=== PATIENT | female | born 1970 | race Caucasian/White ===

== ENCOUNTER → 2016-09-23 | Outpatient (CLI) | payer BC ==
[2016-02-22 22:02] VITALS: BP 126/65
[2016-09-23 17:34] LABS: C-REACTIVE PROTEIN 2.4 mg/L (0-3.0)
[2016-09-23 18:10] LABS: RHEUMATOID FACTOR NEGATIVE (NEGATIVE)
[2016-09-27 06:20] LABS: ANTI-NUCLEAR ANTIBODY TEST None Detected (None Detected)
== END ==
LOC: LAB 16:57
PROVIDERS: ATTEND Internal Medicine
DX: M79.1 Myalgia (principal); M62.89 Other specified disorders of muscle
CPT/HCPCS: 36415; 82550; 85652; 86140; 86308; 86430

== ENCOUNTER → 2016-11-22 | Outpatient (CLI) | payer BC ==
[2016-02-22 22:02] VITALS: BP 126/65
== END ==
LOC: LAB 08:50
PROVIDERS: ATTEND Nurse Practitioner Family
DX: E34.8 Other specified endocrine disorders (principal); R53.83 Other fatigue; M79.1 Myalgia
CPT/HCPCS: 36415; 82533

== ENCOUNTER → 2017-02-21 | Outpatient (CLI) | payer BC ==
[2016-02-22 22:02] VITALS: BP 126/65
--- NOTE | 2017-02-21 11:49 | RAD ---
Lumbar spine, five views Indication: Lower back pain with fall a few weeks ago Comparison: None Findings: Vertebral body heights and alignment are normal. No acute fracture or subluxation is ident ified. There is mild degenerative disc disease of the inferior thoracic spine and at L1-L2 and L5-S1 . Mild multilevel facet arthropathy, greatest caudally is also noted. SI joints are unremarkable. Impression: No acute osseous abnormality. Mild degenerative changes, as above. Reported By:
--- NOTE | 2017-02-21 11:59 | RAD ---
Cervical spine, five views Indication: Neck pain with history of fall few weeks ago Comparison: MRI February 13, 2016 Findings: The cervical spine is well seen to C6 on the lateral view. Visualized vertebral body heigh ts and alignment are normal. No acute fracture or subluxation is identified. There is minimal degene rative disc disease at C5-C6 and C6-C7 without significant disk space narrowing. Prevertebral soft t issues are unremarkable. Impression: Very mild degenerative disc disease of the lower cervical spine. Reported By:
== END | disposition home or self-care (01) ==
LOC: RAD 10:47
PROVIDERS: ATTEND Nurse Practitioner Family
DX: M54.5 Low back pain (principal); R20.0 Anesthesia of skin; R20.2 Paresthesia of skin; M50.322 Other cervical disc degeneration at C5-C6 level
CPT/HCPCS: 72050; 72110

== ENCOUNTER 2017-03-15 11:48 | Inpatient (IN) | payer BC ==
[2017-03-15] MEDS: NS 1000 ML 1,000 ML IV SCH (13:15)
[2017-03-15] MEDS: PROTONIX INJ 40 MG VIAL IVP SCH (13:16)
[2017-03-15] MEDS: CLEOCIN 600 MG IV PREMIX 600 MG/50 ML BAG IV SCH ×3 (13:16→20:59)
[2017-03-15] MEDS: ZOFRAN INJ 4 MG VIAL IVP PRN (13:16)
[2017-03-15] MEDS: MORPHINE SULFATE INJ 2 MG INJ IVP PRN ×2 (13:16→18:22)
[2017-03-15 13:22] LABS: BASOPHILS # (AUTO) 0.1 X10^3/uL (0.0-0.1); BASOPHILS % (AUTO) 1.2 % (0.2-1.0); EOSINOPHILS # (AUTO) 0.1 x10^3/uL (0.0-0.2); EOSINOPHILS % (AUTO) 0.6 % (0.9-2.9); HEMATOCRIT 37.7 % (36.0-47.0); HEMOGLOBIN 12.7 g/dL (12.0-16.0); LYMPHOCYTES # (AUTO) 2.3 X10^3/uL (1.3-2.9); LYMPHOCYTES % (AUTO) 25.3 % (21.0-51.0); MEAN CORPUSCULAR HEMOGLOBIN 29.1 pg (27.0-34.0); MEAN CORPUSCULAR HGB CONC 33.6 g/dL (33.0-35.0); MEAN CORPUSCULAR VOLUME 86.7 fL (80.0-100.0); MEAN PLATELET VOLUME 8.4 fL (7.4-11.0); MONOCYTES # (AUTO) 0.6 x10^3/uL (0.3-0.8); MONOCYTES % (AUTO) 7.2 % (0.0-13.0); NEUTROPHILS # (AUTO) 5.9 x10^3/uL (2.2-4.8); NEUTROPHILS % (AUTO) 65.7 % (42.0-75.0); PLATELET COUNT 325 X10^3/uL (150.0-450.0); RED BLOOD COUNT 4.35 X10^6/uL (3.5-5.4); RED CELL DISTRIBUTION WIDTH 14.1 % (11.6-16.5)
[2017-03-15 13:32] LABS: ALANINE AMINOTRANSFERASE 26 Units/L (12-78); ALBUMIN 3.1 g/dL (3.4-5.0); ALKALINE PHOSPHATASE 116 Units/L (46-116); ASPARTATE AMINO TRANSFERASE 16 Units/L (15-37); BLOOD UREA NITROGEN 9 mg/dL (7-18); CALCIUM 9.1 mg/dL (8.5-10.1); CARBON DIOXIDE 30.2 mmol/L (21-32); CHLORIDE 102 mmol/L (98-107); COR CA(FOR HYPOALB) 9.8 mg/dL (8.5-10.1); CREATININE 0.87 mg/dL (0.55-1.02); SODIUM 138 mmol/L (136-145); TOTAL PROTEIN 7.4 g/dL (6.4-8.2); eGFR BLACK RACES > 60 (>60); eGFR NON BLACK RACES > 60 (>60)
--- NOTE | 2017-03-15 13:33 | DR.H&P ---
H&P - History & Physical for Day of: H&P Date: 03/15/17 - Chief Complaint Chief Complaint: ABSCESS TO LEFT THIGH AND BACK - Allergies Allergies/Adverse Reactions: Allergies Allergy/AdvReac Type Severity Reaction Status Date / Time sulfamethoxazole Allergy Verified 03/15/17 12:45 [From Bactrim] trimethoprim [From Bactrim] Allergy Verified 03/15/17 12:45 - History of Present Illness History of Present Illness: 46 WF DIRECT ADMIT PER DR COREAS FOR TREATMENT OF CELLULITIS TO RIGHT THIGH WITH ABSCESS FORMATION, AND ABSCESS TO BACK. PT HAS TAKEN DOXYCYCLINE BY MOUTH AND WOUND ARE WITHOUT IMPROVEMENT. PLAN TO OBTAIN WOUND CULTURES, BC, ADMINISTER IV ATBX, CONSULT SURGEON FOR I & S PROCEDURE. IV PAIN CONTROL. RESUME HOME MEDICATION. - Past Medical History Past Medical History: Anxiety, Arthritis, Hypertension Additional Medical History: chronic UTIs - Past Surgical History Surgical History: Cholecystectomy, Hysterectomy - Social History Does patient currently use any type of tobacco product: No Have you used tobacco products in the last 12 months: No Type of Tobacco Use: None Does any household member use tobacco: No Alcohol Use: None Drug Use: None - Medications Home Medications: Citalopram 20 mg Tab [CELEXA 20 MG *] 1 tab PO DAILY 03/15/17 [History Confirmed 03/15/17] Estradiol [Estrace] 1 tab PO DAILY 03/15/17 [History Confirmed 03/15/17] Folic Acid [Folic Acid] 1 tab PO DAILY 03/15/17 [History Confirmed 03/15/17] - Review of Systems Constitutional: Fever, Chills Eyes: No Symptoms Reported ENT: No Symptoms Reported Respiratory: No Symptoms Reported Cardiovascular: No Symptoms Reported Gastrointestinal: Nausea Genitourinary: No Symptoms Reported Musculoskeletal: Leg Pain Skin: Wound Neurological: No Symptoms Reported - Physical Exam Vital Signs: Temperature 98.2 F Pulse Rate [Left Brachial] 85 Respiratory Rate 20 Blood Pressure [Left Arm] 127/68 Blood Pressure [Right Arm] 126/65 Blood Pressure 126/65 O2 Sat by Pulse Oximetry 97 Oriented: Normal Eyes: Normal Ear: Normal Nose: Normal Throat: Normal Respiratory: Clear Throughout Cardiovascular: Normal : Normal Auscultation: Bowel Sounds: Normal Palpation: Normal Tenderness: Normal Skin: Red, Tender, Wound (ABSCESS TO RIGHT THIGH, MID BACK) Musculoskeletal: Back:Thoracic, Tender (CERVICAL SPINE) Psychiatric: Anxiety Speech Pattern: Clear - Assessment/Plan (1) Abscess of leg, right Status: Acute Plan: ADMIT, BLOOD AND WOUND CULTURES. WOUND CARE, IV CLINDAMYCIN. SURGICAL CONSULT FOR I & D (2) Abscess or cellulitis of back Status: Acute (3) Cellulitis of leg, right Status: Acute
[2017-03-15 17:05] VITALS: BMI 37.0
[2017-03-15] MEDS: NORCO 10/325 TAB PO PRN (20:49)
[2017-03-16] MEDS: NS 1000 ML 1,000 ML IV SCH ×2 (01:59→16:48)
[2017-03-16] MEDS: CLEOCIN 600 MG IV PREMIX 600 MG/50 ML BAG IV SCH ×3 (05:11→21:16)
[2017-03-16] MEDS ORDERED: MARCAINE 0.25% INJ ONE ×2 (08:32→09:42)
[2017-03-16] MEDS ORDERED: XYLOCAINE 1% and EPINEPHRINE 1:100,000 ONE ×2 (08:32→09:42)
[2017-03-16] MEDS ORDERED: VERSED ONE (09:15)
[2017-03-16] MEDS ORDERED: DIPRIVAN VIAL ONE (09:15)
[2017-03-16 09:19] LABS: BASOPHILS # (AUTO) 0.1 X10^3/uL (0.0-0.1); BASOPHILS % (AUTO) 1.1 % (0.2-1.0); EOSINOPHILS # (AUTO) 0.1 x10^3/uL (0.0-0.2); EOSINOPHILS % (AUTO) 1.4 % (0.9-2.9); HEMATOCRIT 37.2 % (36.0-47.0); HEMOGLOBIN 12.4 g/dL (12.0-16.0); LYMPHOCYTES # (AUTO) 1.9 X10^3/uL (1.3-2.9); LYMPHOCYTES % (AUTO) 29.9 % (21.0-51.0); MEAN CORPUSCULAR HEMOGLOBIN 29.1 pg (27.0-34.0); MEAN CORPUSCULAR HGB CONC 33.4 g/dL (33.0-35.0); MEAN CORPUSCULAR VOLUME 87.1 fL (80.0-100.0); MEAN PLATELET VOLUME 8.2 fL (7.4-11.0); MONOCYTES # (AUTO) 0.5 x10^3/uL (0.3-0.8); NEUTROPHILS # (AUTO) 3.8 x10^3/uL (2.2-4.8); NEUTROPHILS % (AUTO) 59.6 % (42.0-75.0); PLATELET COUNT 245 X10^3/uL (150.0-450.0); RED BLOOD COUNT 4.27 X10^6/uL (3.5-5.4); WHITE BLOOD COUNT 6.4 X10^3/uL (3.6-10.0)
[2017-03-16] MEDS ORDERED: LR 1000 ML IV 1,000 ML IV ONE (09:22)
[2017-03-16 09:31] LABS: ALANINE AMINOTRANSFERASE 23 Units/L (12-78); ALBUMIN 2.9 g/dL (3.4-5.0); ALKALINE PHOSPHATASE 115 Units/L (46-116); ASPARTATE AMINO TRANSFERASE 16 Units/L (15-37); BLOOD UREA NITROGEN 9 mg/dL (7-18); CALCIUM 8.9 mg/dL (8.5-10.1); CARBON DIOXIDE 28.3 mmol/L (21-32); CHLORIDE 104 mmol/L (98-107); COR CA(FOR HYPOALB) 9.8 mg/dL (8.5-10.1); CREATININE 0.83 mg/dL (0.55-1.02); SODIUM 138 mmol/L (136-145); TOTAL PROTEIN 7.1 g/dL (6.4-8.2); eGFR BLACK RACES > 60 (>60); eGFR NON BLACK RACES > 60 (>60)
[2017-03-16] MEDS ORDERED: XYLOCAINE-MPF 1% ONE (09:41)
[2017-03-16] MEDS ORDERED: FENTANYL INJ 100 mcg ONE (09:44)
[2017-03-16] MEDS ORDERED: NORCO 5/325 MG TAB PO PRN (10:52)
[2017-03-16] MEDS: MORPHINE SULFATE INJ 2 MG INJ IVP PRN ×2 (11:02→17:34)
[2017-03-16] MEDS: PROTONIX INJ 40 MG VIAL IVP SCH (11:02)
--- NOTE | 2017-03-16 11:07 | OR.GENERIC ---
Post-Op Note Generic - Post-Op Note Operative Report: Date of Operation: March 16, 2017 Pre-Operative Diagnosis: 1. Left lower back abscess. 2. Right anterior thigh abscess. Post-Operative Diagnosis: 1. Left lower back abscess. 2. Right anterior thigh abscess. Procedures: 1. Incision and drainage of left lower back abscess. 2. Incision and drainage of right anterior thigh abscess. Surgeon: Faizan Gan MD Anesthesia: Monitored anesthesia care and local. Clinical Writer: Melvin Dillard CRNA. Specimen: Wound culture from left lower back. Estimated blood loss: Minimal. Complications: None. Summary: The patient is a 46 year old female who presented with a left lower back and right anterior thigh abscesses. The patient failed to improve with outpatient antibiotics and was admitted to the hospital for IV antibiotics. Surgery consulted for incision and drainage. The risk and benefits of the procedure including difficulty with anesthesia, bleeding, infection, scar formation, delayed healing, as well as recurrence were discussed with the patient. The patient understood these risks and requested the procedure. On March 16, 2017, the patient was brought to the operative theatre. A time out was performed verifying the patient and the procedure. After satisfactory induction of monitored anesthesia care, the left lower back was prepped and draped in the usual fashion. Local anesthetic was infiltrated around the area of induration. A small core of skin was removed sharply. The abscess cavity was entered bluntly. Purulent drainage was noted. A culture was obtained and sent to microbiology. All loculations were disrupted bluntly. The abscess cavity was copiously irrigated. The abscess cavity was noted to track approximately 6 cm inferior and lateral to the skin escar. Next, the wound was packed with Iodoform. A sterile dressing was placed. The patient was then positioned to address the right anterior thigh abscess. The area was prepped and draped. Local anesthetic was injected to create a field block. Spontaneous drainage occurred prior to arrival in the OR. Therefore, the area with the skin defect was enlarged sharply. The abscess cavity was explored and mild purulence seen. All loculations were disrupted bluntly. The wound was irrigated. The wound was then packed with Iodoform. A dressing was placed. The patient was awakened and taken to the recovery room in stable condition. There were no complications. All counts were correct.
[2017-03-16] MEDS: NORCO 10/325 TAB PO PRN ×2 (13:59→21:08)
--- NOTE | 2017-03-16 18:00 | PCM.PROG ---
Progress Note - Progress Note for Day of Date: 03/16/17 - Subjective Subjective: pain to abscess to right inner thigh, pt states abscess began to drain last night - Past Medical Family Social History Past Med/Fam/Surg Hx: No changes since H&P Allergies: Allergies sulfamethoxazole [From Bactrim] Allergy (Verified 03/15/17 12:45) trimethoprim [From Bactrim] Allergy (Verified 03/15/17 12:45) - Review of Systems ROS: No change since H&P - Vital Signs and I&O's Vital Signs: Temperature 97.8 F Pulse Rate [Right Brachial] 77 Pulse Rate [Left Brachial] 85 Respiratory Rate 18 Blood Pressure [Left Arm] 127/68 Blood Pressure [Right Arm] 107/56 Blood Pressure 126/65 O2 Sat by Pulse Oximetry 96 Intake and Output: Intake & Output 03/14/17 03/15/17 03/16/17 03/17/17 11:59 11:59 11:59 11:59 Intake Total 1500 240 Balance 1500 240 - Physical Exam Oriented: Normal Eyes: Normal Ear: Normal Nose: Normal Throat: Normal Respiratory: Normal Cardiovascular: Normal : Normal Auscultation: Bowel Sounds: Normal Tenderness: Normal Skin: Red, Tender, Wound (ABSCESS TO RIGHT THIGH, MID BACK) Musculoskeletal: Back:Thoracic, Tender (CERVICAL SPINE) Psychiatric: Anxiety Speech Pattern: Clear, Appropriate - Laboratory and Diagnostics Result Diagrams: 03/16/17 09:00 03/16/17 09:00 Labs: 03/15/17 13:56 Leg - Right Gram Stain - Final 03/15/17 13:56 Leg - Right Wound Culture - Preliminary 03/15/17 13:54 Back Gram Stain - Final 03/15/17 13:54 Back Wound Culture - Preliminary 03/15/17 13:07 Blood Blood Culture - Preliminary Laboratory WBC 6.4 X10^3/uL (3.6-10.0) 03/16/17 09:00 RBC 4.27 X10^6/uL (3.5-5.4) 03/16/17 09:00 Hgb 12.4 g/dL (12.0-16.0) 03/16/17 09:00 Hct 37.2 % (36.0-47.0) 03/16/17 09:00 MCV 87.1 fL (80.0-100.0) 03/16/17 09:00 MCH 29.1 pg (27.0-34.0) 03/16/17 09:00 MCHC 33.4 g/dL (33.0-35.0) 03/16/17 09:00 RDW 14.0 % (11.6-16.5) 03/16/17 09:00 Plt Count 245 X10^3/uL (150.0-450.0) 03/16/17 09:00 MPV 8.2 fL (7.4-11.0) 03/16/17 09:00 Neut % 59.6 % (42.0-75.0) 03/16/17 09:00 Lymph % 29.9 % (21.0-51.0) 03/16/17 09:00 Lipscomb % 8.0 % (0.0-13.0) 03/16/17 09:00 Eos % 1.4 % (0.9-2.9) 03/16/17 09:00 Baso % 1.1 % (0.2-1.0) H 03/16/17 09:00 Neut # 3.8 x10^3/uL (2.2-4.8) 03/16/17 09:00 Lymph # 1.9 X10^3/uL (1.3-2.9) 03/16/17 09:00 Lipscomb # 0.5 x10^3/uL (0.3-0.8) 03/16/17 09:00 Eos # 0.1 x10^3/uL (0.0-0.2) 03/16/17 09:00 Baso # 0.1 X10^3/uL (0.0-0.1) 03/16/17 09:00 Absolute Nucleated RBC 0.0 /100WBC 03/16/17 09:00 Sodium 138 mmol/L (136-145) 03/16/17 09:00 Corrected Sodium TNP 03/16/17 09:00 Potassium 4.1 mmol/L (3.5-5.1) 03/16/17 09:00 Chloride 104 mmol/L (98-107) 03/16/17 09:00 Carbon Dioxide 28.3 mmol/L (21-32) 03/16/17 09:00 BUN 9 mg/dL (7-18) 03/16/17 09:00 Creatinine 0.83 mg/dL (0.55-1.02) 03/16/17 09:00 Est GFR (MDRD) Af Amer > 60 (>60) 03/16/17 09:00 Est GFR (MDRD) Non-Af > 60 (>60) 03/16/17 09:00 Glucose 99 mg/dL (65-99) 03/16/17 09:00 Calcium 8.9 mg/dL (8.5-10.1) 03/16/17 09:00 Corrected Calcium 9.8 mg/dL (8.5-10.1) 03/16/17 09:00 Total Bilirubin 0.40 mg/dL (0.2-1.0) 03/16/17 09:00 AST 16 Units/L (15-37) 03/16/17 09:00 ALT 23 Units/L (12-78) 03/16/17 09:00 Alkaline Phosphatase 115 Units/L (46-116) 03/16/17 09:00 Total Protein 7.1 g/dL (6.4-8.2) 03/16/17 09:00 Albumin 2.9 g/dL (3.4-5.0) L 03/16/17 09:00 Globulin 4.2 g/dL (2.5-4.5) 03/16/17 09:00 Albumin/Globulin Ratio 0.7 Ratio (1.1-2.1) L 03/16/17 09:00 - Plan (1) Abscess of leg, right Status: Acute Plan: BLOOD AND WOUND CULTURES pending. WOUND CARE, IV CLINDAMYCIN. SURGICAL CONSULT FOR I & D (2) Abscess or cellulitis of back Status: Acute (3) Cellulitis of leg, right Status: Acute
[2017-03-16] MEDS ORDERED: MAALOX or MYLANTA PO PRN (21:19)
[2017-03-17] MEDS: NS 1000 ML 1,000 ML IV SCH ×2 (01:10→17:00)
[2017-03-17] MEDS: CLEOCIN 600 MG IV PREMIX 600 MG/50 ML BAG IV SCH ×3 (05:36→21:18)
[2017-03-17 06:05] LABS: BASOPHILS # (AUTO) 0.1 X10^3/uL (0.0-0.1); BASOPHILS % (AUTO) 0.8 % (0.2-1.0); EOSINOPHILS # (AUTO) 0.3 x10^3/uL (0.0-0.2); EOSINOPHILS % (AUTO) 4.2 % (0.9-2.9); HEMATOCRIT 37.1 % (36.0-47.0); HEMOGLOBIN 12.5 g/dL (12.0-16.0); LYMPHOCYTES # (AUTO) 2.1 X10^3/uL (1.3-2.9); LYMPHOCYTES % (AUTO) 26.6 % (21.0-51.0); MEAN CORPUSCULAR HEMOGLOBIN 29.1 pg (27.0-34.0); MEAN CORPUSCULAR HGB CONC 33.5 g/dL (33.0-35.0); MEAN CORPUSCULAR VOLUME 86.6 fL (80.0-100.0); MEAN PLATELET VOLUME 8.5 fL (7.4-11.0); MONOCYTES # (AUTO) 0.5 x10^3/uL (0.3-0.8); MONOCYTES % (AUTO) 6.8 % (0.0-13.0); NEUTROPHILS # (AUTO) 4.9 x10^3/uL (2.2-4.8); NEUTROPHILS % (AUTO) 61.6 % (42.0-75.0); PLATELET COUNT 282 X10^3/uL (150.0-450.0); RED BLOOD COUNT 4.28 X10^6/uL (3.5-5.4); RED CELL DISTRIBUTION WIDTH 13.9 % (11.6-16.5)
[2017-03-17] MEDS: NORCO 10/325 TAB PO PRN ×2 (06:08→17:44)
[2017-03-17] MEDS: ZOFRAN INJ 4 MG VIAL IVP PRN (06:08)
[2017-03-17 06:40] LABS: ALANINE AMINOTRANSFERASE 22 Units/L (12-78); ALBUMIN 2.6 g/dL (3.4-5.0); ALKALINE PHOSPHATASE 101 Units/L (46-116); ASPARTATE AMINO TRANSFERASE 13 Units/L (15-37); BLOOD UREA NITROGEN 7 mg/dL (7-18); CALCIUM 8.3 mg/dL (8.5-10.1); CARBON DIOXIDE 27.1 mmol/L (21-32); CHLORIDE 103 mmol/L (98-107); COR CA(FOR HYPOALB) 9.4 mg/dL (8.5-10.1); CREATININE 0.89 mg/dL (0.55-1.02); SODIUM 138 mmol/L (136-145); TOTAL PROTEIN 6.3 g/dL (6.4-8.2); eGFR BLACK RACES > 60 (>60); eGFR NON BLACK RACES > 60 (>60)
[2017-03-17] MEDS ORDERED: FOLIC ACID TAB 1 MG PO SCH (09:00)
[2017-03-17] MEDS ORDERED: ESTRACE PO SCH (09:00)
[2017-03-17] MEDS: PROTONIX INJ 40 MG VIAL IVP SCH (09:14)
[2017-03-17] MEDS: CELEXA PO SCH (09:15)
[2017-03-17] MEDS: MORPHINE SULFATE INJ 2 MG INJ IVP PRN (09:21)
[2017-03-17] MEDS: MILK OF MAGNESIA PO SCH ×2 (09:21→21:18)
[2017-03-17] MEDS ORDERED: PROVENTIL NEB TX 0.083% 2.5MG/ 3ML NEB PRN (09:30)
[2017-03-17] MEDS ORDERED: ROBITUSSIN DM PO PRN (09:30)
[2017-03-17] MEDS: ZANTAC PO SCH ×2 (11:12→21:18)
[2017-03-17] MEDS: DEMEROL INJ IVP PRN ×2 (13:34→21:25)
[2017-03-17] MEDS ORDERED: DEMEROL INJ ONE (13:36)
[2017-03-17] MEDS: COLACE CAP 100 MG PO SCH (21:18)
[2017-03-17] MEDS: FOLIC ACID TAB 1 MG PO SCH (21:19)
[2017-03-17] MEDS: ESTRACE PO SCH (21:20)
[2017-03-18] MEDS: DEMEROL INJ IVP PRN ×2 (04:13→14:17)
[2017-03-18 05:36] LABS: ALANINE AMINOTRANSFERASE 20 Units/L (12-78); ALBUMIN 2.6 g/dL (3.4-5.0); ALKALINE PHOSPHATASE 103 Units/L (46-116); ASPARTATE AMINO TRANSFERASE 11 Units/L (15-37); BLOOD UREA NITROGEN 6 mg/dL (7-18); CALCIUM 8.2 mg/dL (8.5-10.1); CARBON DIOXIDE 29.3 mmol/L (21-32); CHLORIDE 105 mmol/L (98-107); COR CA(FOR HYPOALB) 9.3 mg/dL (8.5-10.1); SODIUM 139 mmol/L (136-145); TOTAL PROTEIN 6.3 g/dL (6.4-8.2); eGFR BLACK RACES > 60 (>60); eGFR NON BLACK RACES > 60 (>60)
[2017-03-18 05:39] LABS: BASOPHILS % (AUTO) 0.5 % (0.2-1.0); EOSINOPHILS # (AUTO) 0.3 x10^3/uL (0.0-0.2); HEMATOCRIT 35.4 % (36.0-47.0); HEMOGLOBIN 11.8 g/dL (12.0-16.0); LYMPHOCYTES # (AUTO) 2.3 X10^3/uL (1.3-2.9); LYMPHOCYTES % (AUTO) 32.5 % (21.0-51.0); MEAN CORPUSCULAR HEMOGLOBIN 29.1 pg (27.0-34.0); MEAN CORPUSCULAR HGB CONC 33.4 g/dL (33.0-35.0); MEAN CORPUSCULAR VOLUME 87.3 fL (80.0-100.0); MEAN PLATELET VOLUME 8.3 fL (7.4-11.0); MONOCYTES # (AUTO) 0.6 x10^3/uL (0.3-0.8); MONOCYTES % (AUTO) 8.3 % (0.0-13.0); NEUTROPHILS # (AUTO) 3.9 x10^3/uL (2.2-4.8); NEUTROPHILS % (AUTO) 54.7 % (42.0-75.0); PLATELET COUNT 296 X10^3/uL (150.0-450.0); RED BLOOD COUNT 4.06 X10^6/uL (3.5-5.4); RED CELL DISTRIBUTION WIDTH 14.5 % (11.6-16.5); WHITE BLOOD COUNT 7.2 X10^3/uL (3.6-10.0)
[2017-03-18] MEDS: CLEOCIN 600 MG IV PREMIX 600 MG/50 ML BAG IV SCH ×3 (05:53→21:00)
[2017-03-18] MEDS: NS 1000 ML 1,000 ML IV SCH (08:58)
[2017-03-18] MEDS: NORCO 10/325 TAB PO PRN ×2 (08:58→20:57)
[2017-03-18] MEDS: CELEXA PO SCH (08:58)
[2017-03-18] MEDS: MILK OF MAGNESIA PO SCH ×3 (08:59→21:00)
[2017-03-18] MEDS: ZANTAC PO SCH ×2 (08:59→20:56)
[2017-03-18] MEDS: PROTONIX INJ 40 MG VIAL IVP SCH (08:59)
[2017-03-18] MEDS ORDERED: DILAUDID INJ IVP PRN (15:48)
[2017-03-18] MEDS: FOLIC ACID TAB 1 MG PO SCH (20:56)
[2017-03-18] MEDS: COLACE CAP 100 MG PO SCH (20:56)
[2017-03-18] MEDS: ESTRACE PO SCH (20:57)
[2017-03-19] MEDS: NORCO 10/325 TAB PO PRN ×2 (01:04→06:14)
[2017-03-19 05:30] LABS: BASOPHILS # (AUTO) 0.1 X10^3/uL (0.0-0.1); BASOPHILS % (AUTO) 0.8 % (0.2-1.0); EOSINOPHILS # (AUTO) 0.2 x10^3/uL (0.0-0.2); EOSINOPHILS % (AUTO) 3.6 % (0.9-2.9); HEMATOCRIT 32.3 % (36.0-47.0); HEMOGLOBIN 10.9 g/dL (12.0-16.0); LYMPHOCYTES # (AUTO) 2.2 X10^3/uL (1.3-2.9); LYMPHOCYTES % (AUTO) 31.6 % (21.0-51.0); MEAN CORPUSCULAR HEMOGLOBIN 29.2 pg (27.0-34.0); MEAN CORPUSCULAR HGB CONC 33.6 g/dL (33.0-35.0); MEAN CORPUSCULAR VOLUME 86.8 fL (80.0-100.0); MEAN PLATELET VOLUME 8.2 fL (7.4-11.0); MONOCYTES # (AUTO) 0.6 x10^3/uL (0.3-0.8); MONOCYTES % (AUTO) 8.6 % (0.0-13.0); NEUTROPHILS # (AUTO) 3.8 x10^3/uL (2.2-4.8); NEUTROPHILS % (AUTO) 55.4 % (42.0-75.0); PLATELET COUNT 273 X10^3/uL (150.0-450.0); RED BLOOD COUNT 3.73 X10^6/uL (3.5-5.4); RED CELL DISTRIBUTION WIDTH 14.4 % (11.6-16.5); WHITE BLOOD COUNT 6.8 X10^3/uL (3.6-10.0)
[2017-03-19 05:55] LABS: ALANINE AMINOTRANSFERASE 16 Units/L (12-78); ALBUMIN 2.3 g/dL (3.4-5.0); ALKALINE PHOSPHATASE 85 Units/L (46-116); ASPARTATE AMINO TRANSFERASE 11 Units/L (15-37); BLOOD UREA NITROGEN 4 mg/dL (7-18); CALCIUM 7.5 mg/dL (8.5-10.1); CARBON DIOXIDE 29.8 mmol/L (21-32); CHLORIDE 105 mmol/L (98-107); COR CA(FOR HYPOALB) 8.9 mg/dL (8.5-10.1); CREATININE 0.79 mg/dL (0.55-1.02); SODIUM 138 mmol/L (136-145); TOTAL PROTEIN 5.7 g/dL (6.4-8.2); eGFR BLACK RACES > 60 (>60); eGFR NON BLACK RACES > 60 (>60)
[2017-03-19] MEDS: ZOFRAN INJ 4 MG VIAL IVP PRN (06:15)
[2017-03-19] MEDS: CLEOCIN 600 MG IV PREMIX 600 MG/50 ML BAG IV SCH ×2 (06:15→13:00)
[2017-03-19] MEDS: CELEXA PO SCH (08:07)
[2017-03-19] MEDS: MILK OF MAGNESIA PO SCH (08:10)
[2017-03-19] MEDS: PROTONIX INJ 40 MG VIAL IVP SCH (08:11)
[2017-03-19] MEDS: ZANTAC PO SCH (08:11)
[2017-03-19] MEDS ORDERED: PERCOCET TAB 5/325 MG PO PRN (12:12)
[2017-03-19 12:30] VITALS: BP 115/63
== END 2017-03-19 15:38 | disposition home or self-care (01) | DRG 603 ==
LOC: MED/SURG 11:48
PROVIDERS: ADMIT Internal Medicine; ATTEND Internal Medicine
PROC: 0J973ZZ Drainage of Back Subcutaneous Tissue and Fascia, Percutaneous Approach (ICD-10-PCS; 2017-03-16)
PROC: 0J9L3ZZ Drainage of Right Upper Leg Subcutaneous Tissue and Fascia, Percutaneous Approach (ICD-10-PCS; principal; 2017-03-16 09:45)
DX: L02.415 Cutaneous abscess of right lower limb (principal); L02.212 Cutaneous abscess of back [any part, except buttock and flank]; L03.115 Cellulitis of right lower limb; F41.8 Other specified anxiety disorders; I10 Essential (primary) hypertension; M13.89 Other specified arthritis, multiple sites; B95.62 Methicillin resistant Staphylococcus aureus infection as the cause of diseases classified elsewhere; L03.312 Cellulitis of back [any part except buttock and flank]
CPT/HCPCS: 36415; 80053; 85025; 87040; 87070; 87075; 87077; 87186; 87205; A4222; C9113; S0020; J0077; J2001; J2175; J2250; J2270; J2405; J3010; J3490; J7120

== ENCOUNTER 2022-05-12 08:30 | Observation (INO) ==
[2022-05-12] MEDS ORDERED: ZOFRAN INJ 4 MG VIAL IVP PRN (10:09)
[2022-05-12 10:14] VITALS: BMI 31.1
[2022-05-12] MEDS ORDERED: MORPHINE SULFATE INJ 2 MG INJ IVP PRN (10:32)
[2022-05-12 10:51] LABS: BILIRUBIN,URINE NEGATIVE (NEGATIVE); BLOOD/HEMOGLOBIN,URINE NEGATIVE (NEGATIVE); GLUCOSE, URINE NEGATIVE (NEGATIVE); KETONES,URINE 2+ (NEGATIVE); LEUKOCYTE ESTERASE ,URINE 1+ (NEGATIVE); NITRITES,URINE POSITIVE (NEGATIVE); PROTEIN,URINE 1+ (NEGATIVE); UROBILINOGEN,URINE 1+ (NORMAL)
[2022-05-12 10:53] LABS: BASOPHILS % (AUTO) 0.7 % (0.2-1.0); EOSINOPHILS % (AUTO) 0.4 % (0.9-2.9); HEMATOCRIT 36.3 % (36.0-47.0); HEMOGLOBIN 12.5 g/dL (12.0-16.0); LYMPHOCYTES # (AUTO) 1.5 X10^3/uL (1.3-2.9); MEAN CORPUSCULAR HEMOGLOBIN 30.2 pg (27.0-34.0); MEAN CORPUSCULAR HGB CONC 34.4 g/dL (33.0-35.0); MEAN CORPUSCULAR VOLUME 87.8 fL (80.0-100.0); MEAN PLATELET VOLUME 8.2 fL (7.4-11.0); MONOCYTES # (AUTO) 0.7 x10^3/uL (0.3-0.8); MONOCYTES % (AUTO) 10.6 % (0.0-13.0); NEUTROPHILS # (AUTO) 4.7 x10^3/uL (2.2-4.8); NEUTROPHILS % (AUTO) 67.3 % (42.0-75.0); RED BLOOD COUNT 4.13 X10^6/uL (3.5-5.4); RED CELL DISTRIBUTION WIDTH 13.5 % (11.6-16.5); WHITE BLOOD COUNT 6.9 X10^3/uL (3.6-10.0)
[2022-05-12 11:02] LABS: ALANINE AMINOTRANSFERASE 12 Units/L (12-78); ALBUMIN 2.5 g/dL (3.4-5.0); ALKALINE PHOSPHATASE 89 Units/L (46-116); AMYLASE 27 Units/L (25-115); ASPARTATE AMINO TRANSFERASE 20 Units/L (15-37); BLOOD UREA NITROGEN 5 mg/dL (7-18); CALCIUM 8.5 mg/dL (8.5-10.1); CARBON DIOXIDE 26.1 mmol/L (21-32); CHLORIDE 103 mmol/L (98-107); COR CA(FOR HYPOALB) 9.7 mg/dL (8.5-10.1); COR NA(FOR HYPERGLY) 138 mmol/L (136-145); CREATININE 0.87 mg/dL (0.55-1.02); LIPASE 48 Units/L (73-393); SODIUM 138 mmol/L (136-145); TOTAL PROTEIN 5.9 g/dL (6.4-8.2); eGFR NON BLACK RACES > 60 (>60)
[2022-05-12 11:08] LABS: APPEARANCE,URINE SLIGHTLY HAZY (CLEAR); BACTERIA,URINE TRACE /HPF (NEGATIVE); COLOR,URINE AMBER (YELLOW); RBC,URINE NONE SEEN /HPF (0-3); SQUAMOUS EPITHELIAL CELL,UR MODERATE /HPF (NEGATIVE)
[2022-05-12 11:19] LABS: BAND NEUTROPHILS % 2 % (0-10); PLATELET MORPHOLOGY COMMENT NORMAL (NORMAL)
[2022-05-12] MEDS: ROCEPHIN VIAL 1 GRAM 1 G in NS 100 ML IV 100 ML IV SCH (12:11)
[2022-05-12] MEDS: NS 1,000 ML IV 1,000 ML IV SCH ×2 (12:13→19:23)
--- NOTE | 2022-05-12 14:28 | DR.H&P ---
H&P History & Physical for Day of: H&P Date: 05/12/22 Chief Complaint Chief Complaint: Intractable nausea vomiting Allergies Allergies Allergy/AdvReac Type Severity Reaction Status Date / Time sulfamethoxazole AdvReac Mild RASH Verified 04/22/22 08:49 [From Bactrim] trimethoprim [From Bactrim] AdvReac Mild RASH Verified 04/22/22 08:49 History of Present Illness History of Present Illness: This is a 51-year-old white female well-known to me. She had acute onset of nausea vomiting yesterday at home. I saw her in my office 2 days ago and diagnosed her with a urinary tract infection and sent it for culture. She has been on oral Augmentin for treatment of this but is afterwards she became sick yesterday. She reports she is not able to keep anything down not even sips of water. We sent her in some Phenergan and ordered a bag of 1 L normal saline yesterday which she received but is no better today. Because of this I went ahead and direct admitted her for intractable nausea vomiting and will start blood work and abdominal series on her. I will give her morphine sulfate for pain IV and Zofran IV for nausea. Past Medical History Past Medical History: Dyslipidemia, Hypertension and Hypothyroidism Additional Medical History: chronic UTIs Past Surgical History Surgical History: Cholecystectomy and Hysterectomy Family History Family Medical History: Hypertension Social History Does any household member use tobacco: No Alcohol Use: None Drug Use: None Medications Home Medications: sulfamethoxazole [From Bactrim] Adverse Reaction (Mild, Verified 04/22/22 08:49) RASH trimethoprim [From Bactrim] Adverse Reaction (Mild, Verified 04/22/22 08:49) RASH CONTINUE taking the following medications amoxicillin 500 mg-potassium clavulanate 125 mg tablet 1 tab PO BID 05/12/22 [H istory] cyclobenzaprine 10 mg tablet 1 tab PO TID PRN Muscle Spasm 05/12/22 [History] estradiol 1 mg tablet 1 tab PO QDAY 05/12/22 [History] famotidine 20 mg tablet 1 tab PO BID 05/12/22 [History] fluconazole 150 mg tablet 1 tab PO ONCE 05/12/22 [History] folic acid 1 mg tablet 1 tab PO QDAY 05/12/22 [History] gabapentin 300 mg capsule 1 cap PO HS 05/12/22 [History] levocetirizine 5 mg tablet 1 tab PO QDAY 05/12/22 [History] levothyroxine 75 mcg tablet 1 tab PO QDAY 05/12/22 [History] lisdexamfetamine 50 mg capsule (Vyvanse) 1 cap PO QAM 05/12/22 [History] metformin 500 mg tablet 1 tab PO .EVENING 05/12/22 [History] metoclopramide HCl 10 mg tablet 1 tab PO QID 05/12/22 [History] metoprolol succinate 25 mg tablet,extended release 24 hr 1 tab PO QDAY 05/12/22 [History] omeprazole 40 mg capsule,delayed release 1 cap PO QDAY 05/12/22 [History] ondansetron HCl 8 mg tablet 1 tab PO TID PRN Nausea 05/12/22 [History] oxycodone 15 mg tablet 1 tab PO QID PRN Pain 05/12/22 [History] rosuvastatin 10 mg tablet 1 tab PO QPM 05/12/22 [History] Labs Result Diagrams: 05/12/22 10:37 05/12/22 10:37 Labs: Laboratory WBC 6.9 X10^3/uL (3.6-10.0) 05/12/22 10:37 RBC 4.13 X10^6/uL (3.5-5.4) 05/12/22 10:37 Hgb 12.5 g/dL (12.0-16.0) 05/12/22 10:37 Hct 36.3 % (36.0-47.0) 05/12/22 10:37 MCV 87.8 fL (80.0-100.0) 05/12/22 10:37 MCH 30.2 pg (27.0-34.0) 05/12/22 10:37 MCHC 34.4 g/dL (33.0-35.0) 05/12/22 10:37 RDW 13.5 % (11.6-16.5) 05/12/22 10:37 Plt Count 186 X10^3/uL (150.0-450.0) 05/12/22 10:37 Plt Count Comment Adequate (ADEQUATE) 05/12/22 10:37 MPV 8.2 fL (7.4-11.0) 05/12/22 10:37 Neut % (Auto) 67.3 % (42.0-75.0) 05/12/22 10:37 Lymph % (Auto) 21.0 % (21.0-51.0) 05/12/22 10:37 Pratt % (Auto) 10.6 % (0.0-13.0) 05/12/22 10:37 Eos % (Auto) 0.4 % (0.9-2.9) L 05/12/22 10:37 Baso % (Auto) 0.7 % (0.2-1.0) 05/12/22 10:37 Neut # (Auto) 4.7 x10^3/uL (2.2-4.8) 05/12/22 10:37 Lymph # (Auto) 1.5 X10^3/uL (1.3-2.9) 05/12/22 10:37 Pratt # (Auto) 0.7 x10^3/uL (0.3-0.8) 05/12/22 10:37 Eos # (Auto) 0.0 x10^3/uL (0.0-0.2) 05/12/22 10:37 Baso # (Auto) 0.0 X10^3/uL (0.0-0.1) 05/12/22 10:37 Absolute Nucleated RBC 0.0 /100WBC 05/12/22 10:37 Total Counted 100 05/12/22 10:37 Neutrophils % (Manual) 76 % (39-76) 05/12/22 10:37 Band Neutrophils % 2 % (0-10) 05/12/22 10:37 Lymphocytes % (Manual) 19 % (13-43) 05/12/22 10:37 Monocytes % (Manual) 3 % (4-9) L 05/12/22 10:37 Plt Morphology Comment Normal (NORMAL) 05/12/22 10:37 RBC Morphology Normal (NORMAL) 05/12/22 10:37 Sodium 138 mmol/L (136-145) 05/12/22 10:37 Corrected Sodium 138 mmol/L (136-145) 05/12/22 10:37 Potassium 3.2 mmol/L (3.5-5.1) L 05/12/22 10:37 Chloride 103 mmol/L (98-107) 05/12/22 10:37 Carbon Dioxide 26.1 mmol/L (21-32) 05/12/22 10:37 BUN 5 mg/dL (7-18) L 05/12/22 10:37 Creatinine 0.87 mg/dL (0.55-1.02) 05/12/22 10:37 Est GFR (MDRD) Af Amer > 60 (>60) 05/12/22 10:37 Est GFR (MDRD) Non-Af > 60 (>60) 05/12/22 10:37 Glucose 113 mg/dL (65-99) H 05/12/22 10:37 Calcium 8.5 mg/dL (8.5-10.1) 05/12/22 10:37 Corrected Calcium 9.7 mg/dL (8.5-10.1) 05/12/22 10:37 Total Bilirubin 0.50 mg/dL (0.2-1.0) 05/12/22 10:37 AST 20 Units/L (15-37) 05/12/22 10:37 ALT 12 Units/L (12-78) 05/12/22 10:37 Alkaline Phosphatase 89 Units/L (46-116) 05/12/22 10:37 Total Protein 5.9 g/dL (6.4-8.2) L 05/12/22 10:37 Albumin 2.5 g/dL (3.4-5.0) L 05/12/22 10:37 Globulin 3.4 g/dL (2.5-4.5) 05/12/22 10:37 Albumin/Globulin Ratio 0.7 Ratio (1.1-2.1) L 05/12/22 10:37 Amylase 27 Units/L (25-115) 05/12/22 10:37 Lipase 48 Units/L (73-393) L 05/12/22 10:37 Specimen Type Clean catch urine 05/12/22 10:40 Urine Color [place] (YELLOW) 05/12/22 10:40 Urine Appearance Slightly hazy (CLEAR) 05/12/22 10:40 Urine pH 8.0 (5.0 - 8.0) 05/12/22 10:40 Ur Specific [place] 1.015 (1.000-1.030) 05/12/22 10:40 Urine Protein 1+ (NEGATIVE) 05/12/22 10:40 Urine Glucose (UA) Negative (NEGATIVE) 05/12/22 10:40 Urine Ketones 2+ (NEGATIVE) 05/12/22 10:40 Urine Blood Negative (NEGATIVE) 05/12/22 10:40 Urine Nitrite Positive (NEGATIVE) 05/12/22 10:40 Urine Bilirubin Negative (NEGATIVE) 05/12/22 10:40 Urine Urobilinogen 1+ (NORMAL) 05/12/22 10:40 Ur Leukocyte Esterase 1+ (NEGATIVE) 05/12/22 10:40 Urine RBC None seen /HPF (0-3) 05/12/22 10:40 Urine WBC 0-2 /HPF (0-5) 05/12/22 10:40 Ur Squamous Epith Cells Moderate /HPF (NEGATIVE) 05/12/22 10:40 Urine Bacteria Trace /HPF (NEGATIVE) 05/12/22 10:40 Urine Mucus Few /HPF (NEGATIVE) 05/12/22 10:40 Ur Culture Indicated? No/not indicated 05/12/22 10:40 Review of Systems Constitutional: No Symptoms Reported Eyes: No Symptoms Reported ENT: No Symptoms Reported Respiratory: No Symptoms Reported Cardiovascular: No Symptoms Reported Gastrointestinal: No Symptoms Reported Genitourinary: No Symptoms Reported Musculoskeletal: Other (Pain all over) Skin: No Symptoms Reported Neurological: No Symptoms Reported Physical Exam Vital Signs: Temperature 100 F Pulse Rate [Bilateral Radial] 95 Respiratory Rate 20 Blood Pressure [Left Arm] 131/79 Blood Pressure 127/67 O2 Sat by Pulse Oximetry 96 Oriented: Normal, Time, Person and Place Eyes: Normal Ear: Normal Nose: Normal Throat: Normal Respiratory: Clear Throughout Cardiovascular: Normal Auscultation: Bowel Sounds: Normal Palpation: Normal Tenderness: Normal Skin: Normal Musculoskeletal: Normal Psychiatric: Normal Mood Description: Calm Affect: Normal Speech Pattern: Clear and Appropriate Assessment/Plan (1) Intractable nausea and vomiting: Status: Acute Plan: Zofran as needed and normal saline IV fluid at 125 mL/h (2) Generalized pain: Status: Acute Plan: Morphine sulfate as needed (3) UTI (urinary tract infection): Narrative Support Text: Urine culture sensitivity 2 days ago showed the patient is growing Escherichia coli. It is sensitive to Rocephin with TAHIR of less than 1. Status: Acute Plan: IV Rocephin Review H&P Reviewed: Yes Patient was examined?: Yes
[2022-05-12] MEDS: PriLOSEC PO SCH (15:27)
[2022-05-12] MEDS: ROXICODONE TAB 15 MG PO PRN ×2 (15:28→23:16)
[2022-05-12] MEDS: ZOFRAN INJ 4 MG VIAL IVP PRN ×2 (15:28→19:37)
[2022-05-12] MEDS: SYNTHROID 75 mcg TAB PO SCH (15:29)
[2022-05-12] MEDS: TOPROL XL PO SCH (15:33)
[2022-05-12] MEDS: REGLAN TAB 10 MG PO SCH ×2 (18:32→21:00)
[2022-05-13] MEDS: NS 1,000 ML IV 1,000 ML IV SCH (02:45)
[2022-05-13 06:19] LABS: ALANINE AMINOTRANSFERASE 14 Units/L (12-78); ALBUMIN 2.4 g/dL (3.4-5.0); ALKALINE PHOSPHATASE 90 Units/L (46-116); ASPARTATE AMINO TRANSFERASE 23 Units/L (15-37); BLOOD UREA NITROGEN 5 mg/dL (7-18); CALCIUM 8.1 mg/dL (8.5-10.1); CARBON DIOXIDE 27.8 mmol/L (21-32); CHLORIDE 105 mmol/L (98-107); COR CA(FOR HYPOALB) 9.4 mg/dL (8.5-10.1); CREATININE 0.76 mg/dL (0.55-1.02); SODIUM 142 mmol/L (136-145); TOTAL PROTEIN 5.8 g/dL (6.4-8.2); eGFR NON BLACK RACES > 60 (>60)
[2022-05-13 06:22] LABS: BASOPHILS % (AUTO) 0.5 % (0.2-1.0); EOSINOPHILS % (AUTO) 0.6 % (0.9-2.9); HEMATOCRIT 36.8 % (36.0-47.0); HEMOGLOBIN 12.7 g/dL (12.0-16.0); LYMPHOCYTES # (AUTO) 1.6 X10^3/uL (1.3-2.9); LYMPHOCYTES % (AUTO) 29.8 % (21.0-51.0); MEAN CORPUSCULAR HEMOGLOBIN 30.3 pg (27.0-34.0); MEAN CORPUSCULAR HGB CONC 34.3 g/dL (33.0-35.0); MEAN CORPUSCULAR VOLUME 88.1 fL (80.0-100.0); MEAN PLATELET VOLUME 8.8 fL (7.4-11.0); MONOCYTES # (AUTO) 0.5 x10^3/uL (0.3-0.8); NEUTROPHILS # (AUTO) 3.3 x10^3/uL (2.2-4.8); NEUTROPHILS % (AUTO) 59.1 % (42.0-75.0); RED BLOOD COUNT 4.18 X10^6/uL (3.5-5.4); RED CELL DISTRIBUTION WIDTH 13.3 % (11.6-16.5); WHITE BLOOD COUNT 5.5 X10^3/uL (3.6-10.0)
--- NOTE | 2022-05-13 07:09 | RAD ---
HISTORYNausea, vomitingSTUDYAcute abdominal [id number] size is normal. Beatrice are normal. Lung clemons are clear. The abdominal gas pattern is nonspecific and nonobstructive. No pneumoperitoneum is identified. No abnormal masses or abnormal calcifications are identified. Regional skeleton is intact.IMPRESSIONUnremarkable acute abdominal seriesElectronically signed by: VIOLET ALBRECHT (May 13, 2022 07:07:22)
[2022-05-13] MEDS ORDERED: K-DUR TAB 20 MEQ PO PRN (07:29)
[2022-05-13] MEDS: ROCEPHIN VIAL 1 GRAM 1 G in NS 100 ML IV 100 ML IV SCH (08:29)
[2022-05-13] MEDS: SYNTHROID 75 mcg TAB PO SCH (08:30)
[2022-05-13] MEDS: TOPROL XL PO SCH (08:30)
[2022-05-13] MEDS: PriLOSEC PO SCH (08:30)
[2022-05-13] MEDS: REGLAN TAB 10 MG PO SCH ×2 (08:30→13:07)
[2022-05-13] MEDS: ZOFRAN INJ 4 MG VIAL IVP PRN (08:35)
--- NOTE | 2022-05-13 08:35 | PCM.PROG ---
Progress Note Progress Note for Day of Date of Exam: 05/13/22 Subjective Subjective: Patient is seen and evaluated this morning. She had no further episodes of vomiting since admission yesterday morning. She does not report that she is still nauseated and is tolerating clear fluids at this time. We will advance her diet to a soft diet this morning to see how she does. Her potassium which was low yesterday has been corrected and is normal. Her magnesium is slightly low this morning 1.7 we will correct that as well. Rest of her labs since admission are normal as well as her acute abdominal series. Continue IV hydration and IV Zofran for nausea. It is unknown as the cause of her nausea could have been caused by the Augmentin she had been started on earlier in the week for her UTI. Her urine culture did come back that we did in the office Tuesday of this week and she grew out Escherichia coli which is sensitive to Rocephin. Past Medical Family Social History Allergies: Allergies sulfamethoxazole [From Bactrim] Adverse Reaction (Mild, Verified 04/22/22 08:49) RASH trimethoprim [From Bactrim] Adverse Reaction (Mild, Verified 04/22/22 08:49) RASH Review of Systems ROS: No change since H&P Vital Signs and I&O's Vital Signs: Temperature 98.1 F Pulse Rate [Bilateral Radial] 70 Respiratory Rate 20 Blood Pressure [Left Arm] 135/63 Blood Pressure 127/67 O2 Sat by Pulse Oximetry 98 Intake and Output: Intake & Output 05/10/22 05/11/22 05/12/22 05/13/22 11:59 11:59 11:59 11:59 Intake Total 995 / 995 Balance 995 / 995 Physical Exam Oriented: Normal, Time, Person and Place Eyes: Normal Ear: Normal Nose: Normal Throat: Normal Respiratory: Normal Cardiovascular: Normal Auscultation: Bowel Sounds: Normal Palpation: Normal Tenderness: Normal Skin: Normal Musculoskeletal: Normal Psychiatric: Normal Mood Description: Calm Affect: Normal Speech Pattern: Clear and Appropriate Laboratory and Diagnostics Result Diagrams: 05/13/22 05:10 05/13/22 05:10 Labs: Laboratory WBC 5.5 X10^3/uL (3.6-10.0) 05/13/22 05:10 RBC 4.18 X10^6/uL (3.5-5.4) 05/13/22 05:10 Hgb 12.7 g/dL (12.0-16.0) 05/13/22 05:10 Hct 36.8 % (36.0-47.0) 05/13/22 05:10 MCV 88.1 fL (80.0-100.0) 05/13/22 05:10 MCH 30.3 pg (27.0-34.0) 05/13/22 05:10 MCHC 34.3 g/dL (33.0-35.0) 05/13/22 05:10 RDW 13.3 % (11.6-16.5) 05/13/22 05:10 Plt Count 190 X10^3/uL (150.0-450.0) 05/13/22 05:10 Plt Count Comment Adequate (ADEQUATE) 05/12/22 10:37 MPV 8.8 fL (7.4-11.0) 05/13/22 05:10 Neut % (Auto) 59.1 % (42.0-75.0) 05/13/22 05:10 Lymph % (Auto) 29.8 % (21.0-51.0) 05/13/22 05:10 [place] % (Auto) 10.0 % (0.0-13.0) 05/13/22 05:10 Eos % (Auto) 0.6 % (0.9-2.9) L 05/13/22 05:10 Baso % (Auto) 0.5 % (0.2-1.0) 05/13/22 05:10 Neut # (Auto) 3.3 x10^3/uL (2.2-4.8) 05/13/22 05:10 Lymph # (Auto) 1.6 X10^3/uL (1.3-2.9) 05/13/22 05:10 [place] # (Auto) 0.5 x10^3/uL (0.3-0.8) 05/13/22 05:10 Eos # (Auto) 0.0 x10^3/uL (0.0-0.2) 05/13/22 05:10 Baso # (Auto) 0.0 X10^3/uL (0.0-0.1) 05/13/22 05:10 Absolute Nucleated RBC 0.1 /100WBC 05/13/22 05:10 Total Counted 100 05/12/22 10:37 Neutrophils % (Manual) 76 % (39-76) 05/12/22 10:37 Band Neutrophils % 2 % (0-10) 05/12/22 10:37 Lymphocytes % (Manual) 19 % (13-43) 05/12/22 10:37 Monocytes % (Manual) 3 % (4-9) L 05/12/22 10:37 Plt Morphology Comment Normal (NORMAL) 05/12/22 10:37 RBC Morphology Normal (NORMAL) 05/12/22 10:37 Sodium 142 mmol/L (136-145) 05/13/22 05:10 Corrected Sodium TNP 05/13/22 05:10 Potassium 3.7 mmol/L (3.5-5.1) 05/13/22 05:10 Chloride 105 mmol/L (98-107) 05/13/22 05:10 Carbon Dioxide 27.8 mmol/L (21-32) 05/13/22 05:10 BUN 5 mg/dL (7-18) L 05/13/22 05:10 Creatinine 0.76 mg/dL (0.55-1.02) 05/13/22 05:10 Est GFR (MDRD) Af Amer > 60 (>60) 05/13/22 05:10 Est GFR (MDRD) Non-Af > 60 (>60) 05/13/22 05:10 Glucose 88 mg/dL (65-99) 05/13/22 05:10 Calcium 8.1 mg/dL (8.5-10.1) L 05/13/22 05:10 Corrected Calcium 9.4 mg/dL (8.5-10.1) 05/13/22 05:10 Magnesium 1.7 mg/dL (2.0-2.9) L 05/13/22 05:10 Total Bilirubin 0.30 mg/dL (0.2-1.0) 05/13/22 05:10 AST 23 Units/L (15-37) 05/13/22 05:10 ALT 14 Units/L (12-78) 05/13/22 05:10 Alkaline Phosphatase 90 Units/L (46-116) 05/13/22 05:10 Total Protein 5.8 g/dL (6.4-8.2) L 05/13/22 05:10 Albumin 2.4 g/dL (3.4-5.0) L 05/13/22 05:10 Globulin 3.4 g/dL (2.5-4.5) 05/13/22 05:10 Albumin/Globulin Ratio 0.7 Ratio (1.1-2.1) L 05/13/22 05:10 Amylase 27 Units/L (25-115) 05/12/22 10:37 Lipase 48 Units/L (73-393) L 05/12/22 10:37 Specimen Type Clean catch urine 05/12/22 10:40 Urine Color [place] (YELLOW) 05/12/22 10:40 Urine Appearance Slightly hazy (CLEAR) 05/12/22 10:40 Urine pH 8.0 (5.0 - 8.0) 05/12/22 10:40 Ur Specific [place] 1.015 (1.000-1.030) 05/12/22 10:40 Urine Protein 1+ (NEGATIVE) 05/12/22 10:40 Urine Glucose (UA) Negative (NEGATIVE) 05/12/22 10:40 Urine Ketones 2+ (NEGATIVE) 05/12/22 10:40 Urine Blood Negative (NEGATIVE) 05/12/22 10:40 Urine Nitrite Positive (NEGATIVE) 05/12/22 10:40 Urine Bilirubin Negative (NEGATIVE) 05/12/22 10:40 Urine Urobilinogen 1+ (NORMAL) 05/12/22 10:40 Ur Leukocyte Esterase 1+ (NEGATIVE) 05/12/22 10:40 Urine RBC None seen /HPF (0-3) 05/12/22 10:40 Urine WBC 0-2 /HPF (0-5) 05/12/22 10:40 Ur Squamous Epith Cells Moderate /HPF (NEGATIVE) 05/12/22 10:40 Urine Bacteria Trace /HPF (NEGATIVE) 05/12/22 10:40 Urine Mucus Few /HPF (NEGATIVE) 05/12/22 10:40 Ur Culture Indicated? No/not indicated 05/12/22 10:40 Radiology Reviewed: Yes Plan (1) Intractable nausea and vomiting: Status: Acute Narrative Support Text: Vomiting have resolved the patient continues to have some nausea. Plan: Zofran as needed and normal saline IV fluid at 125 mL/h. Patient is overall improved we will advance her diet as tolerated to soft diet this morning. The etiology of her nausea that she had and vomiting is unknown and unclear at this time but it could have been related to the p.o. Augmentin she was taken earlier in the week for UTI. Plan on possible discharge home tomorrow if patient tolerates advancing her diet and if her vomiting has subsided. (2) Generalized pain: Status: Acute Narrative Support Text: Overall improved since admission. Plan: Morphine sulfate as needed (3) UTI (urinary tract infection): Status: Acute Narrative Support Text: UTI secondary to E. coli sensitive to Rocephin. Plan: IV Rocephin (4) Hypokalemia: Status: Resolved Narrative Support Text: Hypokalemia resolved at this time. Plan: Recheck CMP in the morning. Correct his potassium if it is low (5) Hypomagnesemia: Status: Acute Narrative Support Text: Magnesium low at 1.7 this morning. Plan: Replace magnesium this morning.
[2022-05-13] MEDS: ROXICODONE TAB 15 MG PO PRN (08:37)
[2022-05-13] MEDS: MAGNESIUM SULFATE 1 GRAM/100 mL PREMIX 1 G/100 ML BAG IV PRN ×2 (09:52→11:14)
[2022-05-13 13:41] VITALS: BP 139/63
--- NOTE | 2022-05-13 16:37 | PCM.DCPLAN ---
DISCHARGE SUMMARY Admission Date Date of Admission: 05/12/22 Discharge Date Discharge Date: 05/13/22 Admission Diagnoses (1) Intractable nausea and vomiting: Status: Acute (2) Generalized pain: Status: Acute (3) UTI (urinary tract infection): Status: Acute (4) Hypokalemia: Status: Resolved (5) Hypomagnesemia: Status: Acute Discharge Diagnoses Discharge Diagnosis: 1. Intractable nausea and vomiting resolved 2. Generalized pain resolved 3. UTI secondary to E. coli 4. Hypokalemia resolved 5. Hypomagnesemia stable Discharge Medications Discharge Medications: Home Medication List amoxicillin 500 mg-potassium clavulanate 125 mg tablet 1 tab PO BID 05/12/22 [History] cyclobenzaprine 10 mg tablet 1 tab PO TID PRN Muscle Spasm 05/12/22 [History] estradiol 1 mg tablet 1 tab PO QDAY 05/12/22 [History] famotidine 20 mg tablet 1 tab PO BID 05/12/22 [History] fluconazole 150 mg tablet 1 tab PO ONCE 05/12/22 [History] folic acid 1 mg tablet 1 tab PO QDAY 05/12/22 [History] gabapentin 300 mg capsule 1 cap PO HS 05/12/22 [History] levocetirizine 5 mg tablet 1 tab PO QDAY 05/12/22 [History] levothyroxine 75 mcg tablet 1 tab PO QDAY 05/12/22 [History] lisdexamfetamine 50 mg capsule (Vyvanse) 1 cap PO QAM 05/12/22 [History] metformin 500 mg tablet 1 tab PO .EVENING 05/12/22 [History] metoclopramide HCl 10 mg tablet 1 tab PO QID 05/12/22 [History] metoprolol succinate 25 mg tablet,extended release 24 hr 1 tab PO QDAY 05/12/22 [History] omeprazole 40 mg capsule,delayed release 1 cap PO QDAY 05/12/22 [History] ondansetron HCl 8 mg tablet 1 tab PO TID PRN Nausea 05/12/22 [History] oxycodone 15 mg tablet 1 tab PO QID PRN Pain 05/12/22 [History] rosuvastatin 10 mg tablet 1 tab PO QPM 05/12/22 [History] Prescriptions: Hospital Course Vital Signs: Temperature 98.3 F Pulse Rate [Bilateral Radial] 65 Respiratory Rate 20 Blood Pressure [Left Arm] 139/63 Blood Pressure 127/67 O2 Sat by Pulse Oximetry 100 Latest Lab Results: Laboratory Last Values WBC 5.5 X10^3/uL (3.6-10.0) 05/13/22 05:10 RBC 4.18 X10^6/uL (3.5-5.4) 05/13/22 05:10 Hgb 12.7 g/dL (12.0-16.0) 05/13/22 05:10 Hct 36.8 % (36.0-47.0) 05/13/22 05:10 MCV 88.1 fL (80.0-100.0) 05/13/22 05:10 MCH 30.3 pg (27.0-34.0) 05/13/22 05:10 MCHC 34.3 g/dL (33.0-35.0) 05/13/22 05:10 RDW 13.3 % (11.6-16.5) 05/13/22 05:10 Plt Count 190 X10^3/uL (150.0-450.0) 05/13/22 05:10 Plt Count Comment Adequate (ADEQUATE) 05/12/22 10:37 MPV 8.8 fL (7.4-11.0) 05/13/22 05:10 Neut % (Auto) 59.1 % (42.0-75.0) 05/13/22 05:10 Lymph % (Auto) 29.8 % (21.0-51.0) 05/13/22 05:10 [place] % (Auto) 10.0 % (0.0-13.0) 05/13/22 05:10 Eos % (Auto) 0.6 % (0.9-2.9) L 05/13/22 05:10 Baso % (Auto) 0.5 % (0.2-1.0) 05/13/22 05:10 Neut # (Auto) 3.3 x10^3/uL (2.2-4.8) 05/13/22 05:10 Lymph # (Auto) 1.6 X10^3/uL (1.3-2.9) 05/13/22 05:10 [place] # (Auto) 0.5 x10^3/uL (0.3-0.8) 05/13/22 05:10 Eos # (Auto) 0.0 x10^3/uL (0.0-0.2) 05/13/22 05:10 Baso # (Auto) 0.0 X10^3/uL (0.0-0.1) 05/13/22 05:10 Absolute Nucleated RBC 0.1 /100WBC 05/13/22 05:10 Total Counted 100 05/12/22 10:37 Neutrophils % (Manual) 76 % (39-76) 05/12/22 10:37 Band Neutrophils % 2 % (0-10) 05/12/22 10:37 Lymphocytes % (Manual) 19 % (13-43) 05/12/22 10:37 Monocytes % (Manual) 3 % (4-9) L 05/12/22 10:37 Plt Morphology Comment Normal (NORMAL) 05/12/22 10:37 RBC Morphology Normal (NORMAL) 05/12/22 10:37 Sodium 142 mmol/L (136-145) 05/13/22 05:10 Corrected Sodium TNP 05/13/22 05:10 Potassium 3.7 mmol/L (3.5-5.1) 05/13/22 05:10 Chloride 105 mmol/L (98-107) 05/13/22 05:10 Carbon Dioxide 27.8 mmol/L (21-32) 05/13/22 05:10 BUN 5 mg/dL (7-18) L 05/13/22 05:10 Creatinine 0.76 mg/dL (0.55-1.02) 05/13/22 05:10 Est GFR (MDRD) Af Amer > 60 (>60) 05/13/22 05:10 Est GFR (MDRD) Non-Af > 60 (>60) 05/13/22 05:10 Glucose 88 mg/dL (65-99) 05/13/22 05:10 Calcium 8.1 mg/dL (8.5-10.1) L 05/13/22 05:10 Corrected Calcium 9.4 mg/dL (8.5-10.1) 05/13/22 05:10 Magnesium 1.7 mg/dL (2.0-2.9) L 05/13/22 05:10 Total Bilirubin 0.30 mg/dL (0.2-1.0) 05/13/22 05:10 AST 23 Units/L (15-37) 05/13/22 05:10 ALT 14 Units/L (12-78) 05/13/22 05:10 Alkaline Phosphatase 90 Units/L (46-116) 05/13/22 05:10 Total Protein 5.8 g/dL (6.4-8.2) L 05/13/22 05:10 Albumin 2.4 g/dL (3.4-5.0) L 05/13/22 05:10 Globulin 3.4 g/dL (2.5-4.5) 05/13/22 05:10 Albumin/Globulin Ratio 0.7 Ratio (1.1-2.1) L 05/13/22 05:10 Amylase 27 Units/L (25-115) 05/12/22 10:37 Lipase 48 Units/L (73-393) L 05/12/22 10:37 Specimen Type Clean catch urine 05/12/22 10:40 Urine Color [place] (YELLOW) 05/12/22 10:40 Urine Appearance Slightly hazy (CLEAR) 05/12/22 10:40 Urine pH 8.0 (5.0 - 8.0) 05/12/22 10:40 Ur Specific [place] 1.015 (1.000-1.030) 05/12/22 10:40 Urine Protein 1+ (NEGATIVE) 05/12/22 10:40 Urine Glucose (UA) Negative (NEGATIVE) 05/12/22 10:40 Urine Ketones 2+ (NEGATIVE) 05/12/22 10:40 Urine Blood Negative (NEGATIVE) 05/12/22 10:40 Urine Nitrite Positive (NEGATIVE) 05/12/22 10:40 Urine Bilirubin Negative (NEGATIVE) 05/12/22 10:40 Urine Urobilinogen 1+ (NORMAL) 05/12/22 10:40 Ur Leukocyte Esterase 1+ (NEGATIVE) 05/12/22 10:40 Urine RBC None seen /HPF (0-3) 05/12/22 10:40 Urine WBC 0-2 /HPF (0-5) 05/12/22 10:40 Ur Squamous Epith Cells Moderate /HPF (NEGATIVE) 05/12/22 10:40 Urine Bacteria Trace /HPF (NEGATIVE) 05/12/22 10:40 Urine Mucus Few /HPF (NEGATIVE) 05/12/22 10:40 Ur Culture Indicated? No/not indicated 05/12/22 10:40 Hospital Course: This is a 51-year-old white female well-known to me. She had acute onset of nausea vomiting yesterday at home. I saw her in my office 2 days ago and diagnosed her with a urinary tract infection and sent it for culture. She has been on oral Augmentin for treatment of this but is afterwards she became sick yesterday. She reports she is not able to keep anything down not even sips of water. We sent her in some Phenergan and ordered a bag of 1 L normal saline yesterday which she received but is no better today. Because of this I went ahead and direct admitted her for intractable nausea vomiting and will start blood work and abdominal series on her. I will give her morphine sulfate for pain IV and Zofran IV for nausea. By the following morning the patient was feeling slightly better. It was noted she had not vomited since admission. Her potassium was low, and it was replaced as well as her low magnesium this morning. This morning we advance her diet to a soft diet and she tolerated well and after lunch she was ready to be discharged home. Her lab work up from yesterday and today and abdominal series were all normal. Patient be discharged home in stable condition. We will be seeing her in Zofran 8 mg 1 every 8 hours as needed nausea vomiting #30 no refills. We will have hospital follow-up arranged in 1 week. My office and I will see her then. She has any further problems she come office and we can get her in sooner if we need to.
== END 2022-05-13 15:00 | disposition home or self-care (01) ==
LOC: MED/SURG
PROVIDERS: ADMIT Family Medicine; ATTEND Family Medicine
DX: E78.2 Mixed hyperlipidemia; B96.29 Other Escherichia coli [E. coli] as the cause of diseases classified elsewhere; E83.42 Hypomagnesemia; I10 Essential (primary) hypertension; E87.6 Hypokalemia; Z87.440 Personal history of urinary (tract) infections; E03.8 Other specified hypothyroidism; R11.2 Nausea with vomiting, unspecified; N39.0 Urinary tract infection, site not specified